=== PATIENT | female | born 1950 | race Caucasian/White ===

== ENCOUNTER → 2016-08-24 | Outpatient (REF) | payer MEDICARE, BC ==
[2016-08-24 12:04] LABS: BASO # 0.1 K/mm3 (0.0-0.2); BASO % 0.9 % (0.0-1.0); EOS # 0.4 K/mm3 (0.0-0.50); EOS % 5.3 % (0.0-3.0); LARGE UNSTAINED CELL # 0.2 K/mm3 (0.0-0.4); LARGE UNSTAINED CELL % 2.3 % (0.0-4.0); LYMPH # 2.3 K/mm3 (1.5-4.5); LYMPH % 28.1 % (24.0-44.0); MEAN CORPUSCULAR HEMOGLOBIN 29.8 pg (27.0-33.0); MEAN CORPUSCULAR VOLUME 90.2 fl (80.0-96.0); MONO # 0.4 K/mm3 (0.0-0.8); MONO % 4.5 % (0.0-5.0); NEUTROPHILS # 4.8 K/mm3 (1.8-7.7); NEUTROPHILS % 58.8 % (36.0-66.0); PLATELET COUNT, AUTOMATED 357 k/mm3 (150-450); RED CELL DISTRIBUTION WIDTH 12.7 % (11.5-14.5); WHITE BLOOD COUNT 8.2 K/mm3 (4.0-10.0)
[2016-08-24 12:24] LABS: ALBUMIN 3.6 GM/DL (3.2-5.2); ALBUMIN/GLOBULIN RATIO 1.16 (1.00-1.93); ALKALINE PHOSPHATASE 84 U/L (45-117); ALT/SGPT 19 U/L (12-78); ANION GAP 9 MEQ/L (8-16); AST/SGOT 12 U/L (15-37); BILIRUBIN,TOTAL 0.4 MG/DL (0.2-1.0); BLOOD UREA NITROGEN 16 MG/DL (7-18); CALCIUM LEVEL 9.3 MG/DL (8.8-10.2); CARBON DIOXIDE LEVEL 30 MEQ/L (21-32); CHLORIDE LEVEL 104 MEQ/L (98-107); CHOLESTEROL LEVEL 154 MG/DL (<200); CREATININE FOR GFR 0.84 MG/DL (0.55-1.02); FREE T4 1.07 NG/DL (0.76-1.46); GLOMERULAR FILTRATION RATE > 60.0 (>45); GLUCOSE, FASTING 129 MG/DL (80-110); POTASSIUM SERUM 4.6 MEQ/L (3.5-5.1); SODIUM LEVEL 143 MEQ/L (136-145); TOTAL PROTEIN 6.7 GM/DL (6.4-8.2); TRIGLYCERIDES LEVEL 94 MG/DL (<150)
[2016-08-24 12:29] LABS: VITAMIN B12 LEVEL 467 PG/ML (247-911)
== END ==
LOC: M SFHCPLAZ 09:09
PROVIDERS: ATTEND Physician Assistant Medical
DX: I10 Essential (primary) hypertension (principal); E78.00 Pure hypercholesterolemia, unspecified; E11.69 Type 2 diabetes mellitus with other specified complication; E55.9 Vitamin D deficiency, unspecified; E53.8 Deficiency of other specified B group vitamins

== ENCOUNTER 2016-09-30 13:19 | Emergency (ER) | payer BC, MEDICARE ==
[2016-09-30] MEDS ORDERED: ONDANSETRON 4MG/2ML VIAL (J2405) As Ordered ONE (13:38)
[2016-09-30 13:59] LABS: BASO # 0.1 K/mm3 (0.0-0.2); BASO % 0.7 % (0.0-1.0); EOS # 0.3 K/mm3 (0.0-0.50); EOS % 2.7 % (0.0-3.0); LARGE UNSTAINED CELL # 0.1 K/mm3 (0.0-0.4); LARGE UNSTAINED CELL % 1.1 % (0.0-4.0); LYMPH % 24.7 % (24.0-44.0); MEAN CORPUSCULAR HGB CONC 33.4 g/dl (32.0-36.5); MONO # 0.7 K/mm3 (0.0-0.8); MONO % 6.4 % (0.0-5.0); NEUTROPHILS # 7.3 K/mm3 (1.8-7.7); NEUTROPHILS % 64.4 % (36.0-66.0); PLATELET COUNT, AUTOMATED 393 k/mm3 (150-450); RED CELL DISTRIBUTION WIDTH 12.9 % (11.5-14.5); WHITE BLOOD COUNT 11.4 K/mm3 (4.0-10.0)
[2016-09-30 14:20] LABS: ALBUMIN 3.8 GM/DL (3.2-5.2); ALBUMIN/GLOBULIN RATIO 1.06 (1.00-1.93); ALKALINE PHOSPHATASE 81 U/L (45-117); ALT/SGPT 26 U/L (12-78); ANION GAP 8 MEQ/L (8-16); AST/SGOT 21 U/L (15-37); BILIRUBIN,DIRECT 0.2 MG/DL (0.0-0.2); BILIRUBIN,TOTAL 0.8 MG/DL (0.2-1.0); BLOOD UREA NITROGEN 18 MG/DL (7-18); CALCIUM LEVEL 9.4 MG/DL (8.8-10.2); CARBON DIOXIDE LEVEL 29 MEQ/L (21-32); CHLORIDE LEVEL 105 MEQ/L (98-107); CREATININE FOR GFR 0.98 MG/DL (0.55-1.02); GLOMERULAR FILTRATION RATE > 60.0 (>45); GLUCOSE, FASTING 145 MG/DL (80-110); POTASSIUM SERUM 4.2 MEQ/L (3.5-5.1); SODIUM LEVEL 142 MEQ/L (136-145); TOTAL PROTEIN 7.4 GM/DL (6.4-8.2)
--- NOTE | 2016-09-30 16:06 | EDDOCDS ---
Physician Documentation [facility] Name: Ana Jeffers Age: 66 yrs Sex: Female : 1950 Arrival Date: 09/30/2016 Time: 13:19 Bed 12 Private MD: Disposition: 09/30/16 15:22 Discharged to Home/Self Care. Impression: Nausea and vomiting, Diarrhea, unspecified. - Condition is Stable. - Discharge Instructions: Diarrhea, Nausea and Vomiting. - Prescriptions for ZOFRAN ODT 4 mg Oral - dissolve 1 tablet by ORAL route 3 times per day As needed do not chew, do not swallow whole; 9 tablet. - Medication Reconciliation, Local Pharmacy Hours form. - Follow up: Private Physician; When: 2 - 3 days; Reason: Recheck today's complaints. - Problem is new. - Symptoms have improved. - Notes: You were seen in the ED for nausea and vomiting and diarrhea. Bloodwork showed no acute findings, and flu swab was negative. You were treated and improved with Zofran and IV fluids in the ED. As you are feeling better you may return home, may take the Zofran as needed for nausea and may encourage clear fluids, then advancing your diet as tolerated. Return to the ED for any abdominal pain, fever, inability to tolerate oral foods or liquids or any other concerns. Historical: - Allergies: SULFA (SULFONAMIDES); Zithromax; Vicodin; Codeine Sulfate; Lyrica; - Home Meds: 1. Lantus 100 unit/mL Sub-Q soln 44 unit daily 2. glimepiride 4 mg Oral tab twice a day 3. amlodipine 2.5 mg Oral tab 1 tab once daily 4. escitalopram oxalate 20 mg oral tab 1 tab once daily 5. lansoprazole 30 mg oral TbLD 1 tab once daily 6. Vitamin B-12 500 mcg Oral tab daily 7. Vitamin D3 oral 10,000 units oral daily 8. celecoxib 200 mg Oral cap 1 cap 2 times per day 9. rosuvastatin 10 mg oral tab 1 tab once daily 10. Januvia 25 mg oral tab daily - PMHx: Diabetes - NIDDM: controlled; GERD; - PSHx: Appendectomy; Cholecystectomy; D & C; Hysterectomy; - Social history: Smoking status: Patient states former smoker of tobacco. No barriers to communication noted, The patient speaks fluent Arabic, Speaks appropriately for age. - Family history: Not pertinent. - : The pt / caregiver states he / she is not on anticoagulants. Home medication list is obtained from the patient. - Exposure Risk Screening:: None identified. Vital Signs: 09/30 13:25 BP 138 / 68; Pulse 66; Resp 18; Temp 96.4(O); Pulse Ox 96% on R/A; Pain 0/10; nb2 13:26 Weight 110.22 kg / 242.99 lbs (R); Height 5 ft. 2 in. (157.48 cm) (R); nb2 15:59 BP 155 / 81; Pulse 67; Resp 18; Temp 97.6(O); Pulse Ox 96% on R/A; Pain 0/10; dem1 13:26 Body Mass Index 44.44 (110.22 kg, 157.48 cm) nb2 MDM: 13:34 IV Saline Lock ordered. br1 13:34 Ondansetron 4 mg IVP once ordered. br1 13:34 NS 0.9% 1000 ml IV at 150 mL/hr continuous ordered. br1 13:35 CBC with Diff Ordered. EDMS 13:35 BMP Ordered. EDMS 13:35 Liver Profile Ordered. EDMS 13:35 Lipase Ordered. EDMS 13:42 -Influenza A&B Rapid Antigen - Nose Ordered. EDMS 13:45 GASTROINTESTINAL (GI) PANEL Ordered. EDMS 14:11 CBC with Diff Reviewed. br1 14:36 BMP Reviewed. br1 14:36 Liver Profile Reviewed. br1 14:36 Lipase Reviewed. br1 14:36 -Influenza A&B Rapid Antigen - Nose Reviewed. br1 14:37 Fluid Challenge ordered. br1 16:05 Financial registration complete. [email or web address] Administered Medications: 13:42 Drug: Ondansetron 4 mg [ondansetron HCl 2 mg/mL intravenous solution (2 mL)] Route: mlb1 IVP; Site: right antecubital; 14:31 Follow up: Response: Nausea is decreased mlb1 13:42 Drug: NS 0.9% 1000 ml [sodium chloride 0.9 % injection solution] Route: IV; Rate: 150 mlb1 mL/hr; Site: right antecubital; Signatures: Dispatcher [employer] EDMS Chanel Farias RN RN [facility] Minh Clark RN RN mlb1 Darrin Combs MD MD br1 Zarina Marques, Reg Reg [email or web address] The chart was reviewed and I authenticate all verbal orders and agree with the evaluation and treatment provided.Corrections: (The following items were deleted from the chart) 13:45 13:43 GASTROINTESTINAL (GI) PANEL+AISHWARYA ordered. EDMS EDMS MTDD
--- NOTE | 2016-09-30 16:06 | EDDOCDS ---
Nurse's Notes [facility] Name: Ana Jeffers Age: 66 yrs Sex: Female : 1950 Arrival Date: 09/30/2016 Time: 13:19 Bed 12 Private MD: Diagnosis: Nausea and vomiting;Diarrhea, unspecified Presentation: 09/30 13:21 Presenting complaint: Patient states: N/V/D began Tuesday. Adult Sepsis Screening: The mlb1 patient does not have new or worsening altered mentation. Patient's respiratory rate is less than 22. Systolic blood pressure is greater than 100. Patient has a qSOFA score of 0- Negative Sepsis Screen. Suicide/Homicide risk assessment- the patient denies having any suicidal and/or homicidal ideations and does not present with any other emotional, behavioral or mental health complaints. Status: Patient is not a service delivery consultant or dependent. Transition of care: patient was not received from another setting of care. Care prior to arrival: None. Glucose check. 139. 13:21 Acuity: ARDEN Level 3 mlb1 13:21 Method Of Arrival: Ambulance mlb1 Historical: - Allergies: SULFA (SULFONAMIDES); Zithromax; Vicodin; Codeine Sulfate; Lyrica; - Home Meds: 1. Lantus 100 unit/mL Sub-Q soln 44 unit daily 2. glimepiride 4 mg Oral tab twice a day 3. amlodipine 2.5 mg Oral tab 1 tab once daily 4. escitalopram oxalate 20 mg oral tab 1 tab once daily 5. lansoprazole 30 mg oral TbLD 1 tab once daily 6. Vitamin B-12 500 mcg Oral tab daily 7. Vitamin D3 oral 10,000 units oral daily 8. celecoxib 200 mg Oral cap 1 cap 2 times per day 9. rosuvastatin 10 mg oral tab 1 tab once daily 10. Januvia 25 mg oral tab daily - PMHx: Diabetes - NIDDM: controlled; GERD; - PSHx: Appendectomy; Cholecystectomy; D & C; Hysterectomy; - Social history: Smoking status: Patient states former smoker of tobacco. No barriers to communication noted, The patient speaks fluent Ukrainian, Speaks appropriately for age. - Family history: Not pertinent. - : The pt / caregiver states he / she is not on anticoagulants. Home medication list is obtained from the patient. - Exposure Risk Screening:: None identified. Screenin:03 Screening information is obtained from the patient. Fall risk: No risks identified. mcp Assistance ADL's: requires no assistance with activities of daily living. Abuse/DV Screen: The patient / caregiver reports he/she is: not in a situation that causes fear, pain or injury. Nutritional screening: No deficits noted. Advance Directives: There is no active DNR order. home support is adequate. Assessment: 13:37 General: Appears in no apparent distress, Behavior is appropriate for age, cooperative. mlb1 Pain: Denies pain. GI: Abdomen is non- distended Bowel sounds present X 4 quads. Abd is soft and non tender X 4 quads. Reports diarrhea, nausea, vomiting. Derm: Skin is pink, warm & dry. normal. 14:31 Reassessment: Patient states symptoms have improved. General: Appears in no apparent mlb1 distress, comfortable, Behavior is appropriate for age, cooperative. Pain: Denies pain. Neurological: No deficits noted. Respiratory: No deficits noted. 16:03 General: Appears in no apparent distress, comfortable, Behavior is cooperative. Pain: mcp Denies pain. Neurological: No deficits noted. Respiratory: No deficits noted. GI: Reports nausea. Derm: Skin is pink, warm & dry. Vital Signs: 13:25 BP 138 / 68; Pulse 66; Resp 18; Temp 96.4(O); Pulse Ox 96% on R/A; Pain 0/10; nb2 13:26 Weight 110.22 kg (R); Height 5 ft. 2 in. (157.48 cm) (R); nb2 15:59 BP 155 / 81; Pulse 67; Resp 18; Temp 97.6(O); Pulse Ox 96% on R/A; Pain 0/10; dem1 13:26 Body Mass Index 44.44 (110.22 kg, 157.48 cm) nb2 Vitals: 13:25 Log In Time N/A - ambulance arrival. nb2 ED Course: 13:20 Patient visited by Ruba Gamez, [facility] Classifier Tender. deg 13:20 Patient moved to Waiting deg 13:20 Patient moved to 12 deg 13:21 Patient visited by Minh Clark RN. mlb1 13:21 Darrin Combs MD is Attending Physician. br1 13:22 Triage Initiated mlb1 13:25 Placed in gown. Bed in low position. Call light in reach. Side rails up X2. nb2 13:26 Patient visited by Jewels Bianchi. nb2 13:33 Patient visited by Darrin Combs MD. br1 13:37 Lipase Sent. mlb1 13:37 Liver Profile Sent. mlb1 13:37 CBC with Diff Sent. mlb1 13:37 BMP Sent. mlb1 13:38 Patient visited by Minh Clark RN. mlb1 13:38 Inserted saline lock: 20 gauge in right antecubital area and blood collected. The mlb1 patient tolerated the procedure well. Labs drawn. (by ED staff). Sent per order to lab. 13:45 -Influenza A&B Rapid Antigen - Nose Sent. mlb1 14:32 Patient visited by Minh Clark RN. mlb1 15:20 Patient visited by Darrin Combs MD. br1 16:00 Patient visited by Parris Gates. dem1 16:03 The patient / caregiver is instructed regarding the plan of care and ED course. mcp 16:03 Discontinued lock intact, bleeding controlled, pressure dressing applied, No mcp redness/swelling at site. No procedures done that require assistance. Administered Medications: 13:42 Drug: Ondansetron 4 mg [ondansetron HCl 2 mg/mL intravenous solution (2 mL)] Route: mlb1 IVP; Site: right antecubital; 14:31 Follow up: Response: Nausea is decreased b1 13:42 Drug: NS 0.9% 1000 ml [sodium chloride 0.9 % injection solution] Route: IV; Rate: 150 mlb1 mL/hr; Site: right antecubital; Order Results: Lab Order: CBC with Diff; SPEC'M 09/30/16 13:36 Test: WHITE BLOOD COUNT; Value: 11.4; Range: 4.0-10.0; Abnormal: Above high normal; Units: K/mm3; Status: F Test: RED BLOOD COUNT; Value: 4.91; Range: 4.00-5.40; Units: M/mm3; Status: F Test: HEMOGLOBIN; Value: 14.7; Range: 12.0-16.0; Units: g/dl; Status: F Test: HEMATOCRIT; Value: 44.2; Range: 36.0-47.0; Units: %; Status: F Test: MEAN CORPUSCULAR VOLUME; Value: 90.0; Range: 80.0-96.0; Units: fl; Status: F Test: MEAN CORPUSCULAR HEMOGLOBIN; Value: 30.0; Range: 27.0-33.0; Units: pg; Status: F Test: MEAN CORPUSCULAR HGB CONC; Value: 33.4; Range: 32.0-36.5; Units: g/dl; Status: F Test: RED CELL DISTRIBUTION WIDTH; Value: 12.9; Range: 11.5-14.5; Units: %; Status: F Test: PLATELET COUNT, AUTOMATED; Value: 393; Range: 150-450; Units: k/mm3; Status: F Test: NEUTROPHILS %; Value: 64.4; Range: 36.0-66.0; Units: %; Status: F Test: LYMPH %; Value: 24.7; Range: 24.0-44.0; Units: %; Status: F Test: MONO %; Value: 6.4; Range: 0.0-5.0; Abnormal: Above high normal; Units: %; Status: F Test: EOS %; Value: 2.7; Range: 0.0-3.0; Units: %; Status: F Test: BASO %; Value: 0.7; Range: 0.0-1.0; Units: %; Status: F Test: LARGE UNSTAINED CELL %; Value: 1.1; Range: 0.0-4.0; Units: %; Status: F Test: NEUTROPHILS #; Value: 7.3; Range: 1.8-7.7; Units: K/mm3; Status: F Test: LYMPH #; Value: 3.0; Range: 1.5-4.5; Units: K/mm3; Status: F Test: MONO #; Value: 0.7; Range: 0.0-0.8; Units: K/mm3; Status: F Test: EOS #; Value: 0.3; Range: 0.0-0.50; Units: K/mm3; Status: F Test: BASO #; Value: 0.1; Range: 0.0-0.2; Units: K/mm3; Status: F Test: LARGE UNSTAINED CELL #; Value: 0.1; Range: 0.0-0.4; Units: K/mm3; Status: F Lab Order: BMP; [facility] 09/30/16 13:36 Test: GLUCOSE, FASTING; Value: 145; Range: 80-110; Abnormal: Above high normal; Units: MG/DL; Status: F Test: BLOOD UREA NITROGEN; Value: 18; Range: 7-18; Units: MG/DL; Status: F Test: CREATININE FOR GFR; Value: 0.98; Range: 0.55-1.02; Units: MG/DL; Status: F Test: GLOMERULAR FILTRATION RATE; Value: > 60.0; Range: >45; Status: F Test: SODIUM LEVEL; Value: 142; Range: 136-145; Units: MEQ/L; Status: F Test: POTASSIUM SERUM; Value: 4.2; Range: 3.5-5.1; Units: MEQ/L; Status: F Test: CHLORIDE LEVEL; Value: 105; Range: 98-107; Units: MEQ/L; Status: F Test: CARBON DIOXIDE LEVEL; Value: 29; Range: 21-32; Units: MEQ/L; Status: F Test: ANION GAP; Value: 8; Range: 8-16; Units: MEQ/L; Status: F Test: CALCIUM LEVEL; Value: 9.4; Range: 8.8-10.2; Units: MG/DL; Status: F Test Note: ; Units are mL/min/1.73 m2 Chronic Kidney Disease Staging per NKF: Stage I & II GFR >=60 Normal to Mildly Decreased Stage III GFR 30-59 Moderately Decreased Stage IV GFR 15-29 Severely Decreased Stage V GFR <15 Very Little GFR Left ESRD GFR <15 on NETTING INSPECTOR Lab Order: Liver Profile; SPEC'M 09/30/16 13:36 Test: AST/SGOT; Value: 21; Range: 15-37; Units: U/L; Status: F Test: ALT/SGPT; Value: 26; Range: 12-78; Units: U/L; Status: F Test: ALKALINE PHOSPHATASE; Value: 81; Range: 45-117; Units: U/L; Status: F Test: BILIRUBIN,TOTAL; Value: 0.8; Range: 0.2-1.0; Units: MG/DL; Status: F Test: BILIRUBIN,DIRECT; Value: 0.2; Range: 0.0-0.2; Units: MG/DL; Status: F Test: TOTAL PROTEIN; Value: 7.4; Range: 6.4-8.2; Units: GM/DL; Status: F Test: ALBUMIN; Value: 3.8; Range: 3.2-5.2; Units: GM/DL; Status: F Test: ALBUMIN/GLOBULIN RATIO; Value: 1.06; Range: 1.00-1.93; Status: F Lab Order: Lipase; SPEC'M 09/30/16 13:36 Test: LIPASE; Value: 159; Range: 73-393; Units: U/L; Status: F Lab Order: -Influenza A&B Rapid Antigen - Nose; SPEC'M 09/30/16 13:43 Test: INFLUENZA A RAPID SCR by ICA; Value: INFLUENZA A RESULTS NEGATIVE; Status: F Test: INFLUENZA A RAPID SCR by ICA; Value: Comments:; Status: F Test: INFLUENZA B RAPID SCR by ICA; Value: INFLUENZA B RESULTS NEGATIVE; Status: F Test Note: ; The Influenza test is a direct rapid immunoassay for the qualitative detection of Influenza viral antigen. Cell culture (Viral Culture) testing should be considered to confirm NEGATIVE results and to assist in detecting other viruses that can provide similar clinical symptoms. Please contact the lab within 24 hours ([phone]) if confirmatory testing is desired. Outcome: 15:22 Discharge ordered by Provider. br1 16:04 Discharge Assessment: patient administered narcotics - no. The following High Risk [facility] Discharge criteria are identified: None. Discharged to home ambulatory, with family. Condition: stable. Discharge instructions given to patient, Instructed on discharge instructions, follow up and referral plans. medication usage, diet, Demonstrated understanding of instructions, medications, Pt was receptive of discharge instructions/ teaching. Prescriptions given X 1. No special radiology studies were completed. Property sent home with patient. 16:04 Patient left the ED. [facility] Signatures: Ruba Gamez, [facility] Class[employer] Tender Unit deg Chanel Farias RN RN Minh Velasquez RN RN mlb1 Darrin Combs MD MD br1 Parris Gates1 eJwels Bianchi2 MTDD
--- NOTE | 2016-10-02 17:06 | EDDOCDS ---
Nurse's Notes [facility] Name: Ana Jeffers Age: 66 yrs Sex: Female : 1950 Arrival Date: 09/30/2016 Time: 13:19 Bed 12 Private MD: Diagnosis: Nausea and vomiting;Diarrhea, unspecified Presentation: 09/30 13:21 Presenting complaint: Patient states: N/V/D began Tuesday. Adult Sepsis Screening: The mlb1 patient does not have new or worsening altered mentation. Patient's respiratory rate is less than 22. Systolic blood pressure is greater than 100. Patient has a qSOFA score of 0- Negative Sepsis Screen. Suicide/Homicide risk assessment- the patient denies having any suicidal and/or homicidal ideations and does not present with any other emotional, behavioral or mental health complaints. Status: Patient is not a customer service manager or dependent. Transition of care: patient was not received from another setting of care. Care prior to arrival: None. Glucose check. 139. 13:21 Acuity: ARDEN Level 3 mlb1 13:21 Method Of Arrival: Ambulance mlb1 Historical: - Allergies: SULFA (SULFONAMIDES); Zithromax; Vicodin; Codeine Sulfate; Lyrica; - Home Meds: 1. Lantus 100 unit/mL Sub-Q soln 44 unit daily 2. glimepiride 4 mg Oral tab twice a day 3. amlodipine 2.5 mg Oral tab 1 tab once daily 4. escitalopram oxalate 20 mg oral tab 1 tab once daily 5. lansoprazole 30 mg oral TbLD 1 tab once daily 6. Vitamin B-12 500 mcg Oral tab daily 7. Vitamin D3 oral 10,000 units oral daily 8. celecoxib 200 mg Oral cap 1 cap 2 times per day 9. rosuvastatin 10 mg oral tab 1 tab once daily 10. Januvia 25 mg oral tab daily - PMHx: Diabetes - NIDDM: controlled; GERD; - PSHx: Appendectomy; Cholecystectomy; D & C; Hysterectomy; - Social history: Smoking status: Patient states former smoker of tobacco. No barriers to communication noted, The patient speaks fluent Occitan, Speaks appropriately for age. - Family history: Not pertinent. - : The pt / caregiver states he / she is not on anticoagulants. Home medication list is obtained from the patient. - Exposure Risk Screening:: None identified. Screenin:03 Screening information is obtained from the patient. Fall risk: No risks identified. mcp Assistance ADL's: requires no assistance with activities of daily living. Abuse/DV Screen: The patient / caregiver reports he/she is: not in a situation that causes fear, pain or injury. Nutritional screening: No deficits noted. Advance Directives: There is no active DNR order. home support is adequate. Assessment: 13:37 General: Appears in no apparent distress, Behavior is appropriate for age, cooperative. mlb1 Pain: Denies pain. GI: Abdomen is non- distended Bowel sounds present X 4 quads. Abd is soft and non tender X 4 quads. Reports diarrhea, nausea, vomiting. Derm: Skin is pink, warm & dry. normal. 14:31 Reassessment: Patient states symptoms have improved. General: Appears in no apparent mlb1 distress, comfortable, Behavior is appropriate for age, cooperative. Pain: Denies pain. Neurological: No deficits noted. Respiratory: No deficits noted. 16:03 General: Appears in no apparent distress, comfortable, Behavior is cooperative. Pain: mcp Denies pain. Neurological: No deficits noted. Respiratory: No deficits noted. GI: Reports nausea. Derm: Skin is pink, warm & dry. Vital Signs: 13:25 BP 138 / 68; Pulse 66; Resp 18; Temp 96.4(O); Pulse Ox 96% on R/A; Pain 0/10; nb2 13:26 Weight 110.22 kg (R); Height 5 ft. 2 in. (157.48 cm) (R); nb2 15:59 BP 155 / 81; Pulse 67; Resp 18; Temp 97.6(O); Pulse Ox 96% on R/A; Pain 0/10; dem1 13:26 Body Mass Index 44.44 (110.22 kg, 157.48 cm) nb2 Vitals: 13:25 Log In Time N/A - ambulance arrival. nb2 ED Course: 13:20 Patient visited by Ruba Gamez, Lead Sharepoint Developer. deg 13:20 Patient moved to Waiting deg 13:20 Patient moved to 12 deg 13:21 Patient visited by Minh Clark RN. mlb1 13:21 Darrin Combs MD is Attending Physician. br1 13:22 Triage Initiated mlb1 13:25 Placed in gown. Bed in low position. Call light in reach. Side rails up X2. nb2 13:26 Patient visited by Jewels Bianchi. nb2 13:33 Patient visited by Darrin Combs MD. br1 13:37 Lipase Sent. mlb1 13:37 Liver Profile Sent. mlb1 13:37 CBC with Diff Sent. mlb1 13:37 BMP Sent. mlb1 13:38 Patient visited by Minh Clark RN. mlb1 13:38 Inserted saline lock: 20 gauge in right antecubital area and blood collected. The mlb1 patient tolerated the procedure well. Labs drawn. (by ED staff). Sent per order to lab. 13:45 -Influenza A&B Rapid Antigen - Nose Sent. mlb1 14:32 Patient visited by Minh Clark RN. mlb1 15:20 Patient visited by Darrin Combs MD. br1 16:00 Patient visited by Parris Gates. [facility] 16:03 The patient / caregiver is instructed regarding the plan of care and ED course. mcp 16:03 Discontinued lock intact, bleeding controlled, pressure dressing applied, No mcp redness/swelling at site. No procedures done that require assistance. 16:17 [facility] Payment Agreement was scanned into [employer] and attached to record. [facility] 10/01 11:26 T-Sheet-- Draft Copy was scanned into [employer] and attached to record. gb Administered Medications: 09/30 13:42 Drug: Ondansetron 4 mg [ondansetron HCl 2 mg/mL intravenous solution (2 mL)] Route: mlb1 IVP; Site: right antecubital; 14:31 Follow up: Response: Nausea is decreased [facility] 13:42 Drug: NS 0.9% 1000 ml [sodium chloride 0.9 % injection solution] Route: IV; Rate: 150 mlb1 mL/hr; Site: right antecubital; Order Results: Lab Order: CBC with Diff; SPEC'M 09/30/16 13:36 Test: WHITE BLOOD COUNT; Value: 11.4; Range: 4.0-10.0; Abnormal: Above high normal; Units: K/mm3; Status: F Test: RED BLOOD COUNT; Value: 4.91; Range: 4.00-5.40; Units: M/mm3; Status: F Test: HEMOGLOBIN; Value: 14.7; Range: 12.0-16.0; Units: g/dl; Status: F Test: HEMATOCRIT; Value: 44.2; Range: 36.0-47.0; Units: %; Status: F Test: MEAN CORPUSCULAR VOLUME; Value: 90.0; Range: 80.0-96.0; Units: fl; Status: F Test: MEAN CORPUSCULAR HEMOGLOBIN; Value: 30.0; Range: 27.0-33.0; Units: pg; Status: F Test: MEAN CORPUSCULAR HGB CONC; Value: 33.4; Range: 32.0-36.5; Units: g/dl; Status: F Test: RED CELL DISTRIBUTION WIDTH; Value: 12.9; Range: 11.5-14.5; Units: %; Status: F Test: PLATELET COUNT, AUTOMATED; Value: 393; Range: 150-450; Units: k/mm3; Status: F Test: NEUTROPHILS %; Value: 64.4; Range: 36.0-66.0; Units: %; Status: F Test: LYMPH %; Value: 24.7; Range: 24.0-44.0; Units: %; Status: F Test: MONO %; Value: 6.4; Range: 0.0-5.0; Abnormal: Above high normal; Units: %; Status: F Test: EOS %; Value: 2.7; Range: 0.0-3.0; Units: %; Status: F Test: BASO %; Value: 0.7; Range: 0.0-1.0; Units: %; Status: F Test: LARGE UNSTAINED CELL %; Value: 1.1; Range: 0.0-4.0; Units: %; Status: F Test: NEUTROPHILS #; Value: 7.3; Range: 1.8-7.7; Units: K/mm3; Status: F Test: LYMPH #; Value: 3.0; Range: 1.5-4.5; Units: K/mm3; Status: F Test: MONO #; Value: 0.7; Range: 0.0-0.8; Units: K/mm3; Status: F Test: EOS #; Value: 0.3; Range: 0.0-0.50; Units: K/mm3; Status: F Test: BASO #; Value: 0.1; Range: 0.0-0.2; Units: K/mm3; Status: F Test: LARGE UNSTAINED CELL #; Value: 0.1; Range: 0.0-0.4; Units: K/mm3; Status: F Lab Order: BMP; SPEC'09/30/16 13:36 Test: GLUCOSE, FASTING; Value: 145; Range: 80-110; Abnormal: Above high normal; Units: MG/DL; Status: F Test: BLOOD UREA NITROGEN; Value: 18; Range: 7-18; Units: MG/DL; Status: F Test: CREATININE FOR GFR; Value: 0.98; Range: 0.55-1.02; Units: MG/DL; Status: F Test: GLOMERULAR FILTRATION RATE; Value: > 60.0; Range: >45; Status: F Test: SODIUM LEVEL; Value: 142; Range: 136-145; Units: MEQ/L; Status: F Test: POTASSIUM SERUM; Value: 4.2; Range: 3.5-5.1; Units: MEQ/L; Status: F Test: CHLORIDE LEVEL; Value: 105; Range: 98-107; Units: MEQ/L; Status: F Test: CARBON DIOXIDE LEVEL; Value: 29; Range: 21-32; Units: MEQ/L; Status: F Test: ANION GAP; Value: 8; Range: 8-16; Units: MEQ/L; Status: F Test: CALCIUM LEVEL; Value: 9.4; Range: 8.8-10.2; Units: MG/DL; Status: F Test Note: ; Units are mL/min/1.73 m2 Chronic Kidney Disease Staging per NKF: Stage I & II GFR >=60 Normal to Mildly Decreased Stage III GFR 30-59 Moderately Decreased Stage IV GFR 15-29 Severely Decreased Stage V GFR <15 Very Little GFR Left ESRD GFR <15 on TUMBLING AND ROLLING SUPERVISOR Lab Order: Liver Profile; SPEC'09/30/16 13:36 Test: AST/SGOT; Value: 21; Range: 15-37; Units: U/L; Status: F Test: ALT/SGPT; Value: 26; Range: 12-78; Units: U/L; Status: F Test: ALKALINE PHOSPHATASE; Value: 81; Range: 45-117; Units: U/L; Status: F Test: BILIRUBIN,TOTAL; Value: 0.8; Range: 0.2-1.0; Units: MG/DL; Status: F Test: BILIRUBIN,DIRECT; Value: 0.2; Range: 0.0-0.2; Units: MG/DL; Status: F Test: TOTAL PROTEIN; Value: 7.4; Range: 6.4-8.2; Units: GM/DL; Status: F Test: ALBUMIN; Value: 3.8; Range: 3.2-5.2; Units: GM/DL; Status: F Test: ALBUMIN/GLOBULIN RATIO; Value: 1.06; Range: 1.00-1.93; Status: F Lab Order: Lipase; SPEC'M 09/30/16 13:36 Test: LIPASE; Value: 159; Range: 73-393; Units: U/L; Status: F Lab Order: -Influenza A&B Rapid Antigen - Nose; SPEC'M 09/30/16 13:43 Test: INFLUENZA A RAPID SCR by ICA; Value: INFLUENZA A RESULTS NEGATIVE; Status: F Test: INFLUENZA A RAPID SCR by ICA; Value: Comments:; Status: F Test: INFLUENZA B RAPID SCR by ICA; Value: INFLUENZA B RESULTS NEGATIVE; Status: F Test Note: ; The Influenza test is a direct rapid immunoassay for the qualitative detection of Influenza viral antigen. Cell culture (Viral Culture) testing should be considered to confirm NEGATIVE results and to assist in detecting other viruses that can provide similar clinical symptoms. Please contact the lab within 24 hours ([phone]) if confirmatory testing is desired. Outcome: 15:22 Discharge ordered by Provider. br1 16:04 Discharge Assessment: patient administered narcotics - no. The following High Risk [facility] Discharge criteria are identified: None. Discharged to home ambulatory, with family. Condition: stable. Discharge instructions given to patient, Instructed on discharge instructions, follow up and referral plans. medication usage, diet, Demonstrated understanding of instructions, medications, Pt was receptive of discharge instructions/ teaching. Prescriptions given X 1. No special radiology studies were completed. Property sent home with patient. 16:04 Patient left the ED. [facility] Signatures: Ruba Gamez, Lead Sharepoint Developer Unit deg Chanel Farias RN RN Rosetta Bolden, Reg Reg gb Minh Clark RN RN mlb1 Darrin Combs MD MD br1 Parris Gates1 Zarina Marques, Reg Reg ks16 Jewels Bianchi2 Chart Complete MTDD
--- NOTE | 2016-10-02 17:06 | EDDOCDS ---
Physician Documentation [facility] Name: Ana Jeffers Age: 66 yrs Sex: Female : 1950 Arrival Date: 09/30/2016 Time: 13:19 Bed 12 Private MD: Disposition: 09/30/16 15:22 Discharged to Home/Self Care. Impression: Nausea and vomiting, Diarrhea, unspecified. - Condition is Stable. - Discharge Instructions: Diarrhea, Nausea and Vomiting. - Prescriptions for ZOFRAN ODT 4 mg Oral - dissolve 1 tablet by ORAL route 3 times per day As needed do not chew, do not swallow whole; 9 tablet. - Medication Reconciliation, Local Pharmacy Hours form. - Follow up: Private Physician; When: 2 - 3 days; Reason: Recheck today's complaints. - Problem is new. - Symptoms have improved. - Notes: You were seen in the ED for nausea and vomiting and diarrhea. Bloodwork showed no acute findings, and flu swab was negative. You were treated and improved with Zofran and IV fluids in the ED. As you are feeling better you may return home, may take the Zofran as needed for nausea and may encourage clear fluids, then advancing your diet as tolerated. Return to the ED for any abdominal pain, fever, inability to tolerate oral foods or liquids or any other concerns. Historical: - Allergies: SULFA (SULFONAMIDES); Zithromax; Vicodin; Codeine Sulfate; Lyrica; - Home Meds: 1. Lantus 100 unit/mL Sub-Q soln 44 unit daily 2. glimepiride 4 mg Oral tab twice a day 3. amlodipine 2.5 mg Oral tab 1 tab once daily 4. escitalopram oxalate 20 mg oral tab 1 tab once daily 5. lansoprazole 30 mg oral TbLD 1 tab once daily 6. Vitamin B-12 500 mcg Oral tab daily 7. Vitamin D3 oral 10,000 units oral daily 8. celecoxib 200 mg Oral cap 1 cap 2 times per day 9. rosuvastatin 10 mg oral tab 1 tab once daily 10. Januvia 25 mg oral tab daily - PMHx: Diabetes - NIDDM: controlled; GERD; - PSHx: Appendectomy; Cholecystectomy; D & C; Hysterectomy; - Social history: Smoking status: Patient states former smoker of tobacco. No barriers to communication noted, The patient speaks fluent Pashto, Speaks appropriately for age. - Family history: Not pertinent. - : The pt / caregiver states he / she is not on anticoagulants. Home medication list is obtained from the patient. - Exposure Risk Screening:: None identified. Vital Signs: 09/30 13:25 BP 138 / 68; Pulse 66; Resp 18; Temp 96.4(O); Pulse Ox 96% on R/A; Pain 0/10; nb2 13:26 Weight 110.22 kg / 242.99 lbs (R); Height 5 ft. 2 in. (157.48 cm) (R); nb2 15:59 BP 155 / 81; Pulse 67; Resp 18; Temp 97.6(O); Pulse Ox 96% on R/A; Pain 0/10; dem1 13:26 Body Mass Index 44.44 (110.22 kg, 157.48 cm) nb2 MDM: 13:34 IV Saline Lock ordered. br1 13:34 Ondansetron 4 mg IVP once ordered. br1 13:34 NS 0.9% 1000 ml IV at 150 mL/hr continuous ordered. br1 13:35 CBC with Diff Ordered. EDMS 13:35 BMP Ordered. EDMS 13:35 Liver Profile Ordered. EDMS 13:35 Lipase Ordered. EDMS 13:42 -Influenza A&B Rapid Antigen - Nose Ordered. EDMS 13:45 GASTROINTESTINAL (GI) PANEL Ordered. EDMS 14:11 CBC with Diff Reviewed. br1 14:36 BMP Reviewed. br1 14:36 Liver Profile Reviewed. br1 14:36 Lipase Reviewed. br1 14:36 -Influenza A&B Rapid Antigen - Nose Reviewed. br1 14:37 Fluid Challenge ordered. br1 16:05 Financial registration complete. [email or web address] 16:17 [facility] Payment Agreement was scanned into [email or web address] and attached to record. [email or web address] 10/01 11:26 T-Sheet-- Draft Copy was scanned into [email or web address] and attached to record. gb Administered Medications: 09/30 13:42 Drug: Ondansetron 4 mg [ondansetron HCl 2 mg/mL intravenous solution (2 mL)] Route: mlb1 IVP; Site: right antecubital; 14:31 Follow up: Response: Nausea is decreased mlb1 13:42 Drug: NS 0.9% 1000 ml [sodium chloride 0.9 % injection solution] Route: IV; Rate: 150 mlb1 mL/hr; Site: right antecubital; Signatures: Dispatcher [employer] EDMS Chanel Farias RN RN mcp Rosetta Baer, Reg Reg gb Minh Clark RN RN mlb1 Darrin Combs MD MD br1 Zarina Marques, Reg Reg ks16 The chart was reviewed and I authenticate all verbal orders and agree with the evaluation and treatment provided.Corrections: (The following items were deleted from the chart) 13:45 13:43 GASTROINTESTINAL (GI) PANEL+AISHWARYA ordered. EDMS EDMS Attachments: 16:17 [facility] Payment Agreement [email or web address] 10/01 11:26 T-Sheet-- Draft Copy gb Chart Complete MTDD
--- NOTE | 2016-10-02 17:06 | EDDOCDS ---
Physician Documentation [facility] Name: Ana Jeffers Age: 66 yrs Sex: Female : 1950 Arrival Date: 09/30/2016 Time: 13:19 Bed 12 Private MD: Disposition: 09/30/16 15:22 Discharged to Home/Self Care. Impression: Nausea and vomiting, Diarrhea, unspecified. - Condition is Stable. - Discharge Instructions: Diarrhea, Nausea and Vomiting. - Prescriptions for ZOFRAN ODT 4 mg Oral - dissolve 1 tablet by ORAL route 3 times per day As needed do not chew, do not swallow whole; 9 tablet. - Medication Reconciliation, Local Pharmacy Hours form. - Follow up: Private Physician; When: 2 - 3 days; Reason: Recheck today's complaints. - Problem is new. - Symptoms have improved. - Notes: You were seen in the ED for nausea and vomiting and diarrhea. Bloodwork showed no acute findings, and flu swab was negative. You were treated and improved with Zofran and IV fluids in the ED. As you are feeling better you may return home, may take the Zofran as needed for nausea and may encourage clear fluids, then advancing your diet as tolerated. Return to the ED for any abdominal pain, fever, inability to tolerate oral foods or liquids or any other concerns. Historical: - Allergies: SULFA (SULFONAMIDES); Zithromax; Vicodin; Codeine Sulfate; Lyrica; - Home Meds: 1. Lantus 100 unit/mL Sub-Q soln 44 unit daily 2. glimepiride 4 mg Oral tab twice a day 3. amlodipine 2.5 mg Oral tab 1 tab once daily 4. escitalopram oxalate 20 mg oral tab 1 tab once daily 5. lansoprazole 30 mg oral TbLD 1 tab once daily 6. Vitamin B-12 500 mcg Oral tab daily 7. Vitamin D3 oral 10,000 units oral daily 8. celecoxib 200 mg Oral cap 1 cap 2 times per day 9. rosuvastatin 10 mg oral tab 1 tab once daily 10. Januvia 25 mg oral tab daily - PMHx: Diabetes - NIDDM: controlled; GERD; - PSHx: Appendectomy; Cholecystectomy; D & C; Hysterectomy; - Social history: Smoking status: Patient states former smoker of tobacco. No barriers to communication noted, The patient speaks fluent Pashto, Speaks appropriately for age. - Family history: Not pertinent. - : The pt / caregiver states he / she is not on anticoagulants. Home medication list is obtained from the patient. - Exposure Risk Screening:: None identified. Vital Signs: 09/30 13:25 BP 138 / 68; Pulse 66; Resp 18; Temp 96.4(O); Pulse Ox 96% on R/A; Pain 0/10; nb2 13:26 Weight 110.22 kg / 242.99 lbs (R); Height 5 ft. 2 in. (157.48 cm) (R); nb2 15:59 BP 155 / 81; Pulse 67; Resp 18; Temp 97.6(O); Pulse Ox 96% on R/A; Pain 0/10; dem1 13:26 Body Mass Index 44.44 (110.22 kg, 157.48 cm) nb2 MDM: 13:34 IV Saline Lock ordered. br1 13:34 Ondansetron 4 mg IVP once ordered. br1 13:34 NS 0.9% 1000 ml IV at 150 mL/hr continuous ordered. br1 13:35 CBC with Diff Ordered. EDMS 13:35 BMP Ordered. EDMS 13:35 Liver Profile Ordered. EDMS 13:35 Lipase Ordered. EDMS 13:42 -Influenza A&B Rapid Antigen - Nose Ordered. EDMS 13:45 GASTROINTESTINAL (GI) PANEL Ordered. EDMS 14:11 CBC with Diff Reviewed. br1 14:36 BMP Reviewed. br1 14:36 Liver Profile Reviewed. br1 14:36 Lipase Reviewed. br1 14:36 -Influenza A&B Rapid Antigen - Nose Reviewed. br1 14:37 Fluid Challenge ordered. br1 16:05 Financial registration complete. [email or web address] 16:17 [facility] Payment Agreement was scanned into [employer] and attached to record. [email or web address] 10/01 11:26 T-Sheet-- Draft Copy was scanned into [employer] and attached to record. gb Administered Medications: 09/30 13:42 Drug: Ondansetron 4 mg [ondansetron HCl 2 mg/mL intravenous solution (2 mL)] Route: mlb1 IVP; Site: right antecubital; 14:31 Follow up: Response: Nausea is decreased mlb1 13:42 Drug: NS 0.9% 1000 ml [sodium chloride 0.9 % injection solution] Route: IV; Rate: 150 mlb1 mL/hr; Site: right antecubital; Signatures: Dispatcher [employer] EDMS Chanel Farias RN RN mcp Rosetta Baer, Reg Reg gb Minh Clark RN RN mlb1 Darrin Combs MD MD br1 Zarina Marques, Reg Reg ks16 The chart was reviewed and I authenticate all verbal orders and agree with the evaluation and treatment provided.Corrections: (The following items were deleted from the chart) 13:45 13:43 GASTROINTESTINAL (GI) PANEL+AISHWARYA ordered. EDMS EDMS Attachments: 16:17 [facility] Payment Agreement [email or web address] 10/01 11:26 T-Sheet-- Draft Copy gb Chart Complete MTDD
== END 2016-09-30 16:04 | disposition home or self-care (01) ==
LOC: M ED 13:19
DX: R11.2 Nausea with vomiting, unspecified (principal); R19.7 Diarrhea, unspecified; E11.9 Type 2 diabetes mellitus without complications; K21.9 Gastro-esophageal reflux disease without esophagitis; Z87.891 Personal history of nicotine dependence; Z79.4 Long term (current) use of insulin; Z79.899 Other long term (current) drug therapy; Z88.2 Allergy status to sulfonamides; Z88.1 Allergy status to other antibiotic agents; Z88.8 Allergy status to other drugs, medicaments and biological substances; Z88.5 Allergy status to narcotic agent
CPT/HCPCS: 36415; 80048; 80076; 83690; 85025; 87804; 96374; 99284; J2405

== ENCOUNTER → 2016-10-26 | Outpatient (CLI) | payer BC, MEDICARE ==
--- NOTE | 2016-10-26 12:30 | REP ---
CT of the chest without IV contrast: Comparisons are 10/10/2015 and 03/30/2015. There is a right middle lobe lung nodule measuring 7 mm on image 45, unchanged from both prior studies. There is a right lower lobe lung nodule measuring 8 mm on image 49, unchanged from both prior studies. There are no other nodules or masses. There are no acute infiltrates or effusions. There is no mediastinal or axillary lymphadenopathy. In the absence of IV contrast the study is insensitive for hilar adenopathy. Thoracic aorta is unremarkable. Cardiac size normal. There is no pericardial effusion. The visualized upper abdominal contents are unremarkable. There is a cholecystectomy. There is no adrenal mass. Impression: There are two lung nodules on the right, stable for 19 months dating to 03/30/2015. Signed by Ritesh Chaparro MD 10/26/2016 12:22 P
== END ==
LOC: M RAD 10:59
PROVIDERS: ATTEND Internal Medicine Pulmonary Disease
DX: R91.8 Other nonspecific abnormal finding of lung field (principal)

== ENCOUNTER → 2016-11-29 | Outpatient (REF) | payer MEDICARE | LOC: M SFHCPLAZ 15:53 | PROVIDERS: ATTEND Physician Assistant Medical | DX: E11.69 Type 2 diabetes mellitus with other specified complication (principal) ==

== ENCOUNTER → 2017-04-25 | Outpatient (REF) | payer MEDICARE | LOC: M LAB REF 13:26 | PROVIDERS: ATTEND Obstetrics & Gynecology | DX: N94.810 Vulvar vestibulitis (principal) ==

== ENCOUNTER → 2017-04-29 | Outpatient (REF) | payer MEDICARE | LOC: M LAB REF 13:01 | PROVIDERS: ATTEND Obstetrics & Gynecology | DX: R30.0 Dysuria (principal) ==

== ENCOUNTER → 2017-05-13 | Outpatient (REF) | payer MEDICARE ==
[2017-05-13 18:14] LABS: INR 0.94
[2017-05-13 18:19] LABS: MEAN CORPUSCULAR HEMOGLOBIN 29.1 pg (27.0-33.0); MEAN CORPUSCULAR HGB CONC 32.6 g/dl (32.0-36.5); MEAN CORPUSCULAR VOLUME 89.1 fl (80.0-96.0); RED CELL DISTRIBUTION WIDTH 12.7 % (11.5-14.5); WHITE BLOOD COUNT 10.5 10^3/uL (4.0-10.0)
[2017-05-13 19:51] LABS: ALBUMIN 3.7 GM/DL (3.2-5.2); ALBUMIN/GLOBULIN RATIO 1.03 (1.00-1.93); ALKALINE PHOSPHATASE 80 U/L (45-117); ALT/SGPT 19 U/L (12-78); ANION GAP 4 MEQ/L (8-16); AST/SGOT 12 U/L (15-37); BILIRUBIN,TOTAL 0.6 MG/DL (0.2-1.0); BLOOD UREA NITROGEN 14 MG/DL (7-18); CARBON DIOXIDE LEVEL 32 MEQ/L (21-32); CHLORIDE LEVEL 104 MEQ/L (98-107); CREATININE FOR GFR 0.87 MG/DL (0.55-1.02); GLOMERULAR FILTRATION RATE > 60.0 (>45); GLUCOSE, FASTING 99 MG/DL (80-110); POTASSIUM SERUM 4.8 MEQ/L (3.5-5.1); SODIUM LEVEL 140 MEQ/L (136-145); TOTAL PROTEIN 7.3 GM/DL (6.4-8.2)
[2017-05-13 20:11] LABS: BASOPHILS 2 % (0-4); EOSINOPHILS 1 % (0-5)
== END ==
LOC: M SFHCPLAZ 12:52
PROVIDERS: ATTEND Family Medicine
DX: Z01.818 Encounter for other preprocedural examination (principal); C51.0 Malignant neoplasm of labium majus; E11.69 Type 2 diabetes mellitus with other specified complication; I10 Essential (primary) hypertension; E66.01 Morbid (severe) obesity due to excess calories; E78.00 Pure hypercholesterolemia, unspecified; R91.8 Other nonspecific abnormal finding of lung field; Z79.899 Other long term (current) drug therapy; Z79.4 Long term (current) use of insulin; Z68.42 Body mass index [BMI] 45.0-49.9, adult
CPT/HCPCS: 80053; 81001; 85007; 85027; 85610; 85730; 86140; 87088; 87186; 93005; G0463